=== PATIENT | female | born 1975 | race African-American/Black ===

== ENCOUNTER 2016-08-11 10:37 | Emergency (ER) | payer OTHER | END 2016-08-11 12:15 | disposition home or self-care (01) | LOC: ER 10:37 | DX: B00.9 Herpesviral infection, unspecified (principal); I10 Essential (primary) hypertension; F41.9 Anxiety disorder, unspecified; Z88.2 Allergy status to sulfonamides | CPT/HCPCS: 96372; 99283 ==